=== PATIENT | male | born 1980 | race Caucasian/White ===

== ENCOUNTER 2019-08-14 13:04 | Outpatient (RCR) | payer OTHER ==
[2019-08-14 13:34] LABS: SEMEN VOLUME 4.5 ML (1.5-5.0)
== END 2019-11-12 | disposition home or self-care (01) ==
LOC: LAB 13:04
PROVIDERS: ATTEND Obstetrics & Gynecology
DX: Z01.89 Encounter for other specified special examinations (principal)
CPT/HCPCS: 89320